=== PATIENT | female | born 1990 | race African-American/Black ===

== ENCOUNTER 2018-02-14 17:30 | Day surgery (SDC) | payer OTHER ==
[2018-02-14 17:51] VITALS: BMI 41.5
[2018-02-14 17:59] VITALS: BP 115/66; TEMP 98.5
--- NOTE | 2018-02-14 18:27 | PDOC.LDHP ---
Labor and Delivery H&P Chief complaint: other (sent over from clinic for a steroid injection) HPI: Patient is a 27YO @ 38.6 weeks consistent with a 28 week sono who was sent over to the hospital for a routine betamethasone injection in anticipation of a scheduled induction on 02/17/18 due to IUGR and uncertain dating. Patient endorses movement and denies any loss of vaginal fluid or vaginal discharge, itching or burning. She endorsed a small amount of vaginal bleeding after having her first cervical check done in clinic this afternoon. She denies any abdominal pain but does endorse some back pain with her contractions. Denies any denies chest pain, SOB, headcahes, vision changes, or LE edema. Current gestational age (weeks): 38 (38.6 based on a 28 week sono) Due date: 03/04/18 (KATELYNN induction for 02/17/18) Dating criteria: second trimester ultrasound Grav: 1 Para: 0 OB History Details: late to care, anemia in , IUGR Current complications: IUGR Abnormal US findings: Yes (IUGR) Past Medical History: none Current medications: pre-saleem vitamins, iron Previous surgical history: none Social history: tobacco use (former tobacco use, none since she was aware she was ) - Physical Exam General: NAD, resting, breathing through contractions Heart: RRR Lungs: nonlabored breathing Abdomen: NTTP Extremeties: no edema FHT: category 1, variability present [place] contractions every: 10 minutes - Vaginal Exam cm dilated: 1 (1.5cm per cervical check performed in clinic today) Effacement: 50% Station: -2 - OB Labs Blood type: O RH: positive Antibody Screen: negative HIV: negative RPR: negative HEPSAg: negative 1 hour GCT: negative (BG level of 89) GBS: negative Urine drug screen: negative Rubella: immune Additional Labs: A1c- 5.0 GC/Chlamydia - negative - Assessment in latent labor presenting for a steroid injection due to IUGR and uncertain dating on ultrasound. - Plan -: sIUP with IUGR: - Aware, fetus has been measuring small for gestational age on U/S @ ~13th percentile. - Will get a repeat U/S at [facility] tomorrow to reassess growth. - FHTs reassuring with baseline in 120s and accels and variability present. - Cervical check in clinic today was 1.5/50/-2. Patient was wang about ~ 10 minutes via continuous monitoring but was resting comfortably and able to breath through them. - Will give first betamethasone injection today due to fetus being IUGR and initial U/S possibly up to 3 weeks off. - Will get a second injection in 24 hours in anticipation of a scheduled induction on 02/17/18. - Patient was monitored after injection for any adverse reaction and tolerated the injection well. Was sent home with labor precautions and instructions regarding when to return to the hospital including severe vaginal bleeding, painful contractions that are 5 minutes or less apart that she in unable to breath through, losing a large amount of vaginal fluid, or not feeling the baby move at least 10x in 2 hours. <Trinh Cardenas - Last Filed: 02/14/18 19:57> <Jarrod Allan - Last Filed: 02/14/18 21:53> Allergies/Adverse Reactions: Allergies Allergy/AdvReac Type Severity Reaction Status Date / Time No Known Allergies Allergy Unverified 02/14/18 17:50 Attending Addendum - Attending Addendum Date/Time: 02/14/182151 I personally discussed the patient with Dr. Morales and Ronald. Patient with suboptimal dates, and has consistently been FGR by EFW, but reported progression and reassuring dopplers. Had received BTMZ at the time of call. OBT warnings discussed, follow up for induction as scheduled. <Jarrod Allan - Last Filed: 02/14/18 21:53>
[2018-02-14] MEDS ORDERED: Betamet Acet/Betamet Na Ph 30 MG/5 ML VIAL IM SCH (18:30)
== END 2018-02-14 19:30 | disposition home or self-care (01) ==
LOC: L&D/OP 17:30
PROVIDERS: ATTEND Orthopaedic Surgery
DX: O36.5930 Maternal care for other known or suspected poor fetal growth, third trimester, not applicable or unspecified (principal); O47.1 False labor at or after 37 completed weeks of gestation; O46.93 Antepartum hemorrhage, unspecified, third trimester; O99.013 Anemia complicating pregnancy, third trimester; D64.9 Anemia, unspecified; Z3A.38 38 weeks gestation of pregnancy; Z87.891 Personal history of nicotine dependence; Z79.899 Other long term (current) drug therapy
CPT/HCPCS: 96372; 99282; J0702

== ENCOUNTER 2018-02-15 16:06 | Inpatient (IN) | payer OTHER ==
[~2018-02-15 16:06] MED LIST: Bupivacaine/Epinephrine 0.25% 30 ML VIAL ONE; Terbutaline Sulfate 1 MG/ML VIAL ONE
[2018-02-15] MEDS ORDERED: Betamet Acet/Betamet Na Ph 30 MG/5 ML VIAL IM SCH (17:30)
--- NOTE | 2018-02-15 18:49 | PDOC.FPROB ---
FMR OB H&P: HPI - History of Present Illness Chief Complaint: Steroid shot History of Present Illness: 27 yo @ 39.0 weeks consistent with a 28 week sono here for 2nd BMZ injection in anticipation of a scheduled induction on 02/17/18 due to IUGR and uncertain dating. Patient endorses movement and denies any loss of vaginal fluid or vaginal discharge, itching or burning. She endorsed a small amount of vaginal bleeding after having her first cervical check done in clinic yesterday, small specks of dark blood. She denies any abdominal pain but does endorse some back pain with her contractions. Denies any denies chest pain, SOB , headaches, vision changes, or new/worsening LE edema. She has some chronic RLE ankle edema after a fracture. Primary Care Physician: Dr. Christine at [facility] FMR OB H&P: Current - Care : 1 Para: 0 Gestational age: 39.0 Due date: 02/22/2018 Dating Criteria: 28.0w sono Course/Complications: late to PNC IUGR (9.2%) on 02/01/2018 - OB Labs Blood type: O RH: positive Antibody Screen: negative HIV: negative RPR: negative HepBsAg: negative Rubella: immune Urine drug screen: negative Gonorrhea: negative Chlamydia: negative 1 hour gtt: 89 A1c: 5.0 GBS: negative - Anatomy Survey Anatomy survey: Dating and anatomy at 28w - Additional Ultrasound Additional: Growth and dopplers 02/01/2018, normal dopplers, Hadlock 9.2% FMR OB H&P: History - Past Medical History PMH: None - OB History OB History: G1 - Surgical History Sx History: None - Social History Social History: Tobacco use (3-4 cigarettes/day) early for last 10 years, denies alcohol or drug use - Family History Family History: Denies h/o DM, HTN, complications FMR OB H&P: Medications - Current Home Medications: Medication Instructions Recorded Confirmed Type Pnv,Calcium 72/Iron/Folic Acid 1 tab PO DAILY 02/14/18 02/16/18 History [PNV Plus Multivitamin] Allergies/Adverse Reactions: Allergies Allergy/AdvReac Type Severity Reaction Status Date / Time No Known Allergies Allergy Verified 02/16/18 00:51 R OB H&P: ROS - Review of Systems General: denies: fever/chills, weight/appetite/sleep changes Eyes: denies: eye pain, vision changes ENT: denies: nasal congestion, rhinorrhea Cardiovascular: denies: chest pain, palpitation Respiratory: denies: cough, congestion Gastrointestinal: denies: abdominal pain, cramping Genitourinary (Female): denies: dysuria, hematuria Musculoskeletal: reports: swelling (R ankle, chronic more so than L ankle). denies: pain, stiffness Neurologic: denies: syncope, weakness Integumentary: denies: itching, rash FMR OB H&P: Vital Signs - Maternal Vital signs: Reviewed and WNL - Heart Tones Baseline: 120 Variability: moderate Acceleration: present Deceleration: absent Category: category 1 [place] contractions every: None FMR OB H&P: Physical Exam - Physical Exam General: NAD, awake, alert and oriented HEENT: normocephalic and atraumatic, EOMI Chest: non-tender to palpation Heart: RRR, normal S1/S2 General: CTAB, no respiratory distress Abdomen: soft, gravid Musculoskeletal: normal gait and station, pulses present Skin: no rash, capillary refill <2 seconds Psychiatric: good judgement and insight, normal mood and affect FMR OB H&P: Results - Imaging Imaging: BPP, dopplers pending FMR OB H&P: A/P - Problem List (1) IUGR (intrauterine growth restriction) Current Visit: Yes Status: Acute (2) Current Visit: Yes Status: Acute (3) Anemia Current Visit: Yes Status: Acute Code(s): D64.9 - ANEMIA, UNSPECIFIED Disposition: 27 yo at 39.0w by 28.0w sono here for BMZ #2 1. Term sIUP with uncertain dating and IUGR - BMZ x2 today - BPP and dopplers pending - Reactive NST - Plan for induction Sunday night - Return precautions and kick count instructions given Discussion: Date/Time: 02/15/181846 This H&P was discussed with Dr. Morales who agrees with the above documentation and plan. Attending Addendum - Attending Addendum Date/Time: 02/16/18 [id number] I personally evaluated the patient and discussed the management with Dr. Ye I agree with the History, Examination, Assessment and Plan documented above with any addition or exceptions noted below. 27 yo G1 at 39w dated by 28w US presenting for BPP/UA dopplers and 2nd BMZ. complicated by growth restriction with plan for induction on Sunday. BMZ given due to concerns that IUGR is due to poor dating and that she will iatrogenically be delivered prematurely. BPP was 88 however UA dopplers were >95th percentile for gestational age. Antegrade flow noted. Decision made to proceed with induction of labor at this time for IUGR at term with elevated UA dopplers. Tracing currently cat I. Cephalic presentation confirmed.
[2018-02-15] MEDS ORDERED: Ondansetron PF 4 MG/2 ML Vial IVP PRN (20:26)
[2018-02-15] MEDS ORDERED: NS / Oxytocin 40 units/1000ml 1,000 ML IV PRN (20:26)
[2018-02-15] MEDS ORDERED: Promethazine HCl 25 MG/ML VIAL IM PRN (20:26)
[2018-02-15] MEDS ORDERED: Lidocaine 1% (PF) 30 ML VIAL SC PRN (20:26)
--- NOTE | 2018-02-15 20:28 | PDOC.EVN ---
Event Note - Event Note Event Note: Discussed elevated S/D ratio with patient and recommendation to proceed with IOL. She agrees and all questions answered at this time. Will start cytotec induction for unfavorable cervix.
[2018-02-15] MEDS ORDERED: Lactated Ringer's 1,000 ML IV SCH (20:30)
[2018-02-15] MEDS ORDERED: NS w/ Oxytocin 10 units 500 ML IV SCH ×2 (20:30)
--- NOTE | 2018-02-15 20:57 | ULT ---
LIMITED OBSTETRICAL ULTRASOUND FOR BIOPHYSICAL PROFILE 02/15/18 INDICATION: History of IUGR. FINDINGS: There is a single live intrauterine gestation in vertex presentation. The placenta is fundal and post erior in location with cardiac activity of 131 beats per minute. The umbilical artery velocity at the placenta measures 88.2 cm/s. The systolic to diastolic ratio is 2.0. At the mid umbilical artery the peak systolic velocity was 150.4 cm/s with a systolic to diastolic ratio of 3.43. The umbilical lucas ry velocity at the fetus measures 145.4 cm/s with a systolic to diastolic ratio of 3.2. The fetus received 2 out of 2 for movement, 2 out of 2 for tone, 2 out of 2 for jere athing and 2 out of 2 for amniotic fluid volume. The PATRICIA was measured at 8.7 cm. IMPRESSION: 1. Biophysical profile is 8 out of 8. 2. The umbilical artery systolic to diastolic ratio is slightly increased, greater than 95th per centile based on gestational age, within the mid umbilical artery with a systolic to diastolic ratio measuring up to 3.43. Antegrade diastolic flow is still seen in all segments of the umbilical artery. 3. PATRICIA of 8.7 cm. POS: BH
--- NOTE | 2018-02-15 20:57 | ULT ---
Please see the separately dictated concurrently performed biophysical profile for details concerning the umbilical artery and its systolic to diastolic ratio. POS: BH
[2018-02-15] MEDS: Lactated Ringer's 1,000 ML IV SCH (21:10)
[2018-02-15 22:24] LABS: Mean Corpuscular HGB CONC 34.7 g/dL (32.0-36.0); Mean Corpuscular Volume 86.6 fL (78.0-98.0); Mean Platelet Volume 7.3 fL (7.4-10.4); Platelet Count 291 thou/uL (130-400); RBC Distribution Width 11.3 % (11.5-14.5); Red Blood Cell (RBC) Count 3.98 mill/uL (4.20-5.40); White Blood Cell (WBC) Count 14.4 thou/uL (4.8-10.8)
[2018-02-15] MEDS: Misoprostol 100 MCG TAB VAG SCH (23:23)
[2018-02-15 23:48] LABS: HBSAg Index 0.17 S/CO (0-0.99); Hep B Surf Ag Non-Reactive S/CO (NonReactive)
[2018-02-16] MEDS ORDERED: Calcium Carbonate 500 MG ChewTAB PO PRN (00:01)
[2018-02-16 00:44] VITALS: BMI 41.5
--- NOTE | 2018-02-16 02:24 | PDOC.LDPN ---
Labor & Delivery Progress Note - Subjective Subjective: comfortable - Objective Vital signs reviewed and normal: yes General: resting Uterine fundus: non tender FHT: category 1 (120-130/mod/+accel/no decel) [place] contractions every: none - Assessment (1) IUGR (intrauterine growth restriction) Current Visit: Yes Status: Acute (2) Current Visit: Yes Status: Acute (3) Anemia Code(s): D64.9 - ANEMIA, UNSPECIFIED Current Visit: Yes Status: Acute Plan: continue plan of care -: 27 yo at 39.1w by 28w sono found to have elevated S/D ratio with IUGR here for IOL 1. Term sIUP with uncertain dating and IUGR, IUGR - s/p BMZ (02/14-) - cytotec #2 at approx 0230 - no contractions at this time - FHTs reassuring Continue cytotec induction
[2018-02-16] MEDS: Misoprostol 100 MCG TAB VAG SCH ×2 (02:38→15:13)
[2018-02-16] MEDS: Lactated Ringer's 1,000 ML IV SCH ×2 (03:58→09:07)
--- NOTE | 2018-02-16 04:41 | PDOC.LDPN ---
Labor & Delivery Progress Note - Subjective Subjective: comfortable - Objective Vital signs reviewed and normal: yes General: resting Uterine fundus: non tender Dilation: 1 Effacement: 50% Station: -2 [place] contractions every: 1-2 minutes Resuscitative measures: maternal oxygen, maternal IV fluids, maternal position change - Assessment (1) IUGR (intrauterine growth restriction) Current Visit: Yes Status: Acute (2) Current Visit: Yes Status: Acute (3) Anemia Code(s): D64.9 - ANEMIA, UNSPECIFIED Current Visit: Yes Status: Acute Plan: resuscitative measures -: 27 yo at 39.1w by 28w sono found to have elevated S/D ratio with IUGR here for IOL 1. Term sIUP with uncertain dating and IUGR - s/p BMZ () - s/p cytotec #2 at approx 0230 - ctx q1-2 minutes Residents called to the bedside for FHT deceleration to the 80s. Maternal position, change, oxygen and fluid bolus performed and FHR increased steadily to 110 and is now 130. Non-painful contractions noted. Will allow rest and consider balloon placement later this morning. If any further decelerations, consider terbulatine. Possibility of C/S discussed with patient. <Yin Ye - Last Filed: 02/16/18 04:51> - Assessment (1) IUGR (intrauterine growth restriction) Current Visit: Yes Status: Acute (2) Current Visit: Yes Status: Acute (3) Anemia Code(s): D64.9 - ANEMIA, UNSPECIFIED Current Visit: Yes Status: Acute <Ceci Morales - Last Filed: 02/16/18 05:17> Attending Addendum - Attending Addendum Date/Time: 02/16/18 0511 I personally evaluated the patient and discussed the management with Dr Ye I agree with the History, Examination, Assessment and Plan documented above with any addition or exceptions noted below. 10 minute decel improved with position change, fluid bolus and oxygen placement. Discussed likely scenario that baby will not tolerate labor since she is having spontaneous decels without contractions. Pt verbalized understanding. Cat II Tracing. Will continue close monitoring <Ceci Morales - Last Filed: 02/16/18 05:17>
--- NOTE | 2018-02-16 04:54 | PDOC.EVN ---
Event Note - Event Note Event Note: Further spontaneous deceleration to FHR of 60 noted for 30 seconds followed by additional to 90 bmp. Ctx noted q1-2 minutes. Terbutaline 0.25mg subq x1 ordered. Will continue to monitor closely.
[2018-02-16] MEDS: Terbutaline Sulfate 1 MG/ML VIAL ONE ×2 (04:57→11:15)
--- NOTE | 2018-02-16 07:52 | PDOC.LDPN ---
Labor & Delivery Progress Note - Subjective Subjective: painful contractions - Objective Vital signs reviewed and normal: yes General: breathing through contractions Uterine fundus: non tender Dilation: 2 Effacement: 90% Station: -2 FHT: category 1 (130/mod/+accel/no decel) [place] contractions every: q2 min - Assessment (1) IUGR (intrauterine growth restriction) Current Visit: Yes Status: Acute (2) Current Visit: Yes Status: Acute (3) Anemia Code(s): D64.9 - ANEMIA, UNSPECIFIED Current Visit: Yes Status: Acute Plan: other (balloon placed) -: 27 yo at 39.1w by 28w sono found to have elevated S/D ratio with IUGR here for IOL 1. Term sIUP with uncertain dating and IUGR - s/p BMZ (02/14-) - s/p cytotec #2 at approx 0230 - ctx q2 minutes - balloon placed successfully Recheck when balloon falls out/12 hours
[2018-02-16] MEDS ORDERED: Fentanyl 4 mcg/Bup 0.1% Cadd 100 ML ONE (08:09)
[2018-02-16] MEDS ORDERED: Eucerin (Mineral Oil/Petrolatum,White) 30 gm Jar TOP PRN ×2 (09:48→12:57)
[2018-02-16] MEDS ORDERED: Naloxone HCl 0.4 mg/ml Vial IVP PRN ×4 (09:48→12:57)
[2018-02-16] MEDS ORDERED: Ondansetron PF 4 MG/2 ML Vial IVP PRN ×3 (09:48→14:49)
[2018-02-16] MEDS ORDERED: ePHEDrine/0.9% NaCl/PF SYRINGE 50 mg/10 ml SLOW IVP PRN (09:48)
[2018-02-16] MEDS ORDERED: Lactated Ringer's 500 ML IV PRN (09:48)
[2018-02-16] MEDS ORDERED: Acetaminophen 325 MG TAB PO PRN (09:48)
[2018-02-16] MEDS ORDERED: diphenhydrAMINE 50 MG/ML VIAL IVP PRN ×2 (09:48→12:57)
[2018-02-16] MEDS ORDERED: Promethazine HCl 25 MG/ML VIAL IM PRN ×3 (09:48→12:57)
[2018-02-16] MEDS ORDERED: Fentanyl 4 mcg/Bupivacaine 0.1% Cassette 100 ML EPIDURAL SCH (10:00)
[2018-02-16] MEDS ORDERED: Communication Order-Pharmacy FS SCH ×2 (10:00→13:00)
[2018-02-16] MEDS ORDERED: CEFAZOLIN 2 GM/50 ML BAG ONE (11:17)
[2018-02-16] MEDS ORDERED: Bicitra 30 ML UDCUP ONE (11:17)
[2018-02-16] MEDS ORDERED: EPINEPHrine 1 MG/ML AMP ONE (11:21)
[2018-02-16] MEDS ORDERED: Succinylcholine Chloride 20 MG/ML 10 ml SYRINGE FS ONE (11:21)
[2018-02-16] MEDS ORDERED: PROPOFOL 0 ML ONE (11:21)
[2018-02-16] MEDS ORDERED: Lidocaine 2% 10 ML INJ ONE ×2 (11:21→11:22)
[2018-02-16] MEDS ORDERED: Fentanyl 100 MCG/2 ML VIAL ONE (11:26)
[2018-02-16] MEDS ORDERED: Ondansetron PF 4 MG/2 ML Vial ONE (11:33)
[2018-02-16] MEDS ORDERED: Oxytocin 10 UNITS/ML VIAL ONE ×2 (11:33→11:34)
[2018-02-16] MEDS ORDERED: Morphine PF 1 MG/ML SYR ONE (11:40)
[2018-02-16 11:43] LABS: Actual Bicarbonate (HCO3a) 28.4 mEq/L (22-28); Base Excess (BEa) -0.2 mEq/L (-2.0 to +3.0)
[2018-02-16] MEDS ORDERED: Promethazine HCl 25 MG SUPP PR PRN (12:57)
[2018-02-16] MEDS ORDERED: PACU-Morphine 4MG/ML VIAL SLOW IVP PRN (12:57)
[2018-02-16] MEDS ORDERED: Naloxone HCl 0.4 mg/ml Vial IV PRN (12:57)
[2018-02-16] MEDS ORDERED: Ondansetron HCl/PF 4 MG/2 ML Vial IVP PRN (12:57)
[2018-02-16] MEDS ORDERED: Promethazine HCl 25 MG/ML VIAL SLOW IVP PRN (12:57)
[2018-02-16] MEDS ORDERED: Ketorolac Tromethamine 30 MG/ML VIAL IVP PRN (12:57)
--- NOTE | 2018-02-16 12:57 | PDOC.OPDEL ---
OB Operative/Delivery Note Delivery Dr/Surgeon: Carmen Rios (attending) Pre-Delivery Diagnosis: medically indicated induction (IUGR) Procedure/Post Delivery Dx: primary low transverse CS Anesthesia: epidural - Findings A Sex: male - 1 min: 8 - 5 min: 9 - Additional Findings/Plan Placenta delivered: spontaneous findings: low transverse hysterotomy without extension Estimated blood loss: unable to determine Compilations/Other Findings: Date of Procedure: 02/16/2018 Resident Surgeon: Gabriel Attending Surgeon: Carmen Procedure: Primary emergent low transverse caesarean section Preoperative Diagnosis: 1)Term intrauterine 2) IUGR of (Hadlock 9%) 3)Elevated S/D ratio 4)Late to care Postoperative Diagnosis: 1)Term intrauterine , delivered via primary LTCS 2) Late to care Anesthesia: epidural Indications: The patient is a 27 year old G1 female at 39.1 weeks gestation who was admitted for IOL 2/2 IUGR of the fetus, who was taken for an emergent c- section 2/2 nonreassuring heart tones. Procedure in Detail: After risks, benefits, and alternatives were explained to the patient, she gave informed consent. Pre-operative antibiotics included Cefazolin 2 gram IV and Azithromicine 500mg IV. The patient was taken to the operating room and patient had already had an epidural placed for anesthesia. She was placed in the supine position with a left tilt and prepped and draped in usual sterile fashion. A Pfannenstiel incision was made with a scalpel and carried down to the level of the fascia which was sharply nicked. The fascial was bluntly dissected. The recti were divided digitally and retracted manually. The peritoneum was entered bluntly and retracted manually. Bladder blade was placed. A low transverse score was made with the scalpel and the uterus was entered in the midline with the scalpel. Clear fluid was seen. The hysterotomy was extended manually. The infant was noted to be vertex and was easily delivered by fundal pressure. Mouth and nares were bulb suctioned. Cord clamped and cut and a section of the cord was sent for a blood gas. A grossly normal male infant was handed to waiting nurse. Cord blood was obtained. Placenta was spontaneously extracted, found to be intact with 3 vessel cord and discarded. The uterus was externalized and the endometrium was curetted with a dry lap. The bladder blade was replaced and the uterus was closed with a running locking #1 Monocryl suture followed by a running non-locking #1 Monocryl horizontal imbricating suture. Following this hemostasis was noted. The abdomen was irrigated with saline and suctioned free of clots. The uterus was internalized and the hysterotomy was again noted to be hemostatic. The muscle was closed with a horizontal mattress stitch using a 0-Vicryl suture. The fascia was closed with a running non-locking 0-Vicryl suture. The subcutaneous tissue was irrigated and there was one persistent bleeder requiring two figure of eight stitches using a Vicryl suture. The skin was approximated with a 3-0 Monocryl cailin suture. All counts were correct. The patient tolerated the procedure well and was taken to the recovery room in stable condition. Estimated Blood Loss: 750 ml Complications: None Specimens: Cord blood sent to lab for blood type Findings: Grossly normal male infant with Apgars of 8 and 9. Grossly normal placenta with 3 vessel cord discarded. Drains: Godinez to gravity draining clear urine Post delivery plan: recovery in LICU
--- NOTE | 2018-02-16 14:02 | PDOC.EVN ---
Event Note - Event Note Event Note: Pt evaluated and cook catheter found to be in vaginal vault. It was removed and pt was 5/90/-1 station. Cat I tracing at that time. Approximately 1 hr later pt had 2 deep variable decels to 60s and FHTs were difficult to trace. Decision was made to AROM and place Internal monitors. She was AROMed for a moderate amount of clear fluid. IUPC also placed. FHT noted to be in 70s x 3 minutes despite maternal oxygen, fluid bolus, repositioning and d/ c oxytocin. A dose of terbutaline was also given with persistent bradycardia. Decision was made to proceed with stat section for non reassuring status. Prior to leaving room FHTs back in 120s and in OR FHTs were 130s.
[2018-02-16] MEDS ORDERED: NS / Oxytocin 40 units/1000ml 1,000 ML IV SCH (14:49)
[2018-02-16] MEDS ORDERED: HYDROcodone/Acetaminophen 5/325 mg Tablet PO PRN (14:49)
[2018-02-16] MEDS ORDERED: Lanolin Ointment 7 GM TUBE TOP PRN (14:49)
[2018-02-16] MEDS ORDERED: Bisacodyl 10 MG SUPP PR PRN (14:49)
[2018-02-16] MEDS ORDERED: Zolpidem Tartrate 5 MG TAB PO PRN (14:49)
[2018-02-16] MEDS ORDERED: Adacel (T-DAP) 0.5 ML SYRINGE IM ONE (14:49)
--- NOTE | 2018-02-16 16:44 | PDOC.PP ---
Post Progress Note Post Day #: 0 Subjective: 27 yo [id number] s/p urgent primary LTCS 2/2 NRFHTs. Mom doing well and baby as well. Mom inquired about and was able to obtain latch in room while I was in there. PO intake tolerated: yes Flatus: no Ambulation: no Vital Signs (12 hours) Temp Pulse Resp BP Pulse Ox 02/16/18 15:50 48 L 16 124/60 02/16/18 14:50 96.4 F L 51 L 16 116/53 L 97 Weight Weight 102.965 kg - Physical Examination General: NAD Respiratory: non-labored breathing Skin: CS incision dry & intact Psychiatric: A&Ox3, normal affect Result Diagrams: 02/15/18 22:05 Additional Labs: Post Labs Blood Type O POSITIVE 02/15/18 22:05 Hep Bs Antigen Non-Reactive S/CO (NonReactive) 02/15/18 22:05 (1) Term Code(s): Z34.80 - ENCOUNTER FOR SUPRVSN OF NORMAL , UNSP TRIMESTER Status: Acute (2) delivery delivered Code(s): O82 - ENCOUNTER FOR DELIVERY WITHOUT INDICATION Status: Acute - Assessment/Plan A/P: 27yo [id number] @39.1wks delivered via primary LTCS. -Continue norco and ibuprofen for pain control -baby registry sales consultant consulted -Encourage ambulation, advance diet as tolerate, dc frances -Continue to monitor I/O's and incision. -AM Hemagram
[2018-02-16] MEDS: Docusate Calcium (SURFAK) 240 MG CAP PO SCH (22:40)
[2018-02-16] MEDS: Ibuprofen 800 MG TAB PO SCH (22:42)
[2018-02-17] MEDS: diphenhydrAMINE 25 MG CAP PO PRN ×4 (00:56→16:16)
[2018-02-17] MEDS: Ibuprofen 800 MG TAB PO SCH ×3 (05:42→22:17)
--- NOTE | 2018-02-17 06:24 | PDOC.PP ---
Post Progress Note Post Day #: 1 Subjective: Pt doing well this morning. Denies pain. Frances pulled. Tolerating normal diet, ambulating, passing flatus. PO intake tolerated: yes Flatus: yes Ambulation: yes Vital Signs (12 hours) Temp Pulse Resp BP Pulse Ox 02/17/18 00:40 98.2 F 51 L 16 117/56 L 02/16/18 20:40 99 F 56 L 16 96 02/16/18 20:17 116/55 L Weight Weight 102.965 kg - Physical Examination General: NAD Cardiovascular: no m/r/g, RRR Respiratory: clear to auscultation bilaterally, non-labored breathing Abdominal: + bowel sounds, appropriately TTP Deviation from normal: uterus 1 cm below umbilicus Skin: CS incision dry & intact Neurological: no gross focal deficits Psychiatric: A&Ox3 Result Diagrams: 02/15/18 22:05 Additional Labs: Post Labs Blood Type O POSITIVE 02/15/18 22:05 Hep Bs Antigen Non-Reactive S/CO (NonReactive) 02/15/18 22:05 (1) Term Code(s): Z34.80 - ENCOUNTER FOR SUPRVSN OF NORMAL , UNSP TRIMESTER Status: Acute (2) delivery delivered Code(s): O82 - ENCOUNTER FOR DELIVERY WITHOUT INDICATION Status: Acute - Assessment/Plan A/P: 27yo [id number] @39.1wks delivered via primary LTCS. -Continue norco and ibuprofen for pain control -Encourage ambulation, advance diet as tolerated, zofran for nausea -Continue to monitor I/O's -Hemagram pending <Dana Rios - Last Filed: 02/17/18 06:48> Vital Signs (12 hours) Temp Pulse Resp BP Pulse Ox 02/17/18 08:46 98.3 F 55 L 18 110/55 L 99 02/17/18 05:35 97.1 F L 51 L 16 130/57 L 02/17/18 00:40 98.2 F 51 L 16 117/56 L Weight Weight 102.965 kg Result Diagrams: 02/17/18 06:45 Additional Labs: Post Labs Blood Type O POSITIVE 02/15/18 22:05 Hep Bs Antigen Non-Reactive S/CO (NonReactive) 02/15/18 22:05 (1) IUGR (intrauterine growth restriction) Status: Acute (2) Status: Acute (3) Anemia Code(s): D64.9 - ANEMIA, UNSPECIFIED Status: Acute <Ceci Morales - Last Filed: 02/17/18 11:12> Attending Addendum - Attending Addendum Date/Time: 02/17/18 1109 I personally evaluated the patient and discussed the management with Dr. Weeks I agree with the History, Examination, Assessment and Plan documented above with any addition or exceptions noted below. POD #1 s/p PLTCS. Pt doing well this morning. Pain is controlled. +Flatus Has not had spontaneous urination s/p removal of frances. Tolerating PO. Denies dizziness. meeting appropriate milestones. Encourage ambulation. anticipate d./c to home on POD # 3 <Ceci Morales - Last Filed: 02/17/18 11:12>
[2018-02-17 07:07] LABS: Mean Corpuscular HGB CONC 33.9 g/dL (32.0-36.0); Mean Corpuscular Hemoglobin 29.8 pg (27.0-31.0); Mean Corpuscular Volume 87.8 fL (78.0-98.0); Mean Platelet Volume 7.4 fL (7.4-10.4); Platelet Count 275 thou/uL (130-400); RBC Distribution Width 11.4 % (11.5-14.5); White Blood Cell (WBC) Count 15.1 thou/uL (4.8-10.8)
[2018-02-17] MEDS: Prenatal Vitamin 1 TAB PO SCH (08:12)
[2018-02-17] MEDS: HYDROcodone/Acetaminophen 5/325 mg Tablet PO PRN ×2 (08:12→19:58)
[2018-02-17] MEDS: Docusate Calcium (SURFAK) 240 MG CAP PO SCH ×2 (08:13→22:16)
[2018-02-17] MEDS: Simethicone Chewable 80 MG TAB PO PRN (19:58)
[2018-02-18] MEDS: HYDROcodone/Acetaminophen 5/325 mg Tablet PO PRN ×6 (00:37→23:03)
[2018-02-18] MEDS: Calcium Carbonate 500 MG ChewTAB PO PRN ×2 (04:30→23:02)
[2018-02-18] MEDS: Ibuprofen 800 MG TAB PO SCH ×3 (05:11→23:02)
--- NOTE | 2018-02-18 05:39 | PDOC.PP ---
Post Progress Note Post Day #: 2 Subjective: Having abdominal pain (diffuse and over incision) 7/10 improved from 10/10 with norco and ibuprofen. Eating and drinking well, voiding and passing flatus. Ambulating, but having pain. Minimal lochia. Otherwise feeling well, denies headache. PO intake tolerated: yes Flatus: yes Ambulation: yes Vital Signs (12 hours) Temp Pulse Resp BP 02/18/18 04:30 97.6 F 62 16 102/50 L 02/18/18 00:25 98.4 F 72 16 112/54 L 02/17/18 20:00 97.9 F 66 16 114/54 L Weight Weight 102.965 kg - Physical Examination General: NAD Cardiovascular: no m/r/g, RRR Respiratory: clear to auscultation bilaterally, non-labored breathing Abdominal: + bowel sounds, no distention Deviation from normal: moderately tender to palpation, no guarding or rebound Fundus firm & at: below umbilicus Skin: CS incision dry & intact, no rash Neurological: no gross focal deficits Psychiatric: A&Ox3, normal affect Result Diagrams: 02/17/18 06:45 Additional Labs: Post Labs Blood Type O POSITIVE 02/15/18 22:05 Hep Bs Antigen Non-Reactive S/CO (NonReactive) 02/15/18 22:05 (1) delivery delivered Code(s): O82 - ENCOUNTER FOR DELIVERY WITHOUT INDICATION Status: Acute (2) IUGR (intrauterine growth restriction) Status: Acute (3) Status: Acute (4) Term Code(s): Z34.80 - ENCOUNTER FOR SUPRVSN OF NORMAL , UNSP TRIMESTER Status: Acute (5) care insufficient Code(s): O09.30 - SUPRVSN OF PREG W INSUFFICIENT ANTENAT CARE, UNSP TRIMESTER Status: Acute - Assessment/Plan 27yo [id number] @39.1wks delivered via primary LTCS on 02/16/18, POD #2. -Continue norco and ibuprofen for pain control, continue to monitor -Encourage ambulation -Patient is pumping, able to get colostrum. Continue encouraging breast feeding -Continue to monitor I/O's -Hgb 12 ->11.0, wnl Dispo: Plan discharge on POD #3 <Radha Barton - Last Filed: 02/18/18 08:43> Vital Signs (12 hours) Temp Pulse Resp BP Pulse Ox 02/18/18 08:17 98.4 F 65 20 118/68 97 02/18/18 04:30 97.6 F 62 16 102/50 L 02/18/18 00:25 98.4 F 72 16 112/54 L Weight Weight 102.965 kg Result Diagrams: 02/17/18 06:45 Additional Labs: Post Labs Blood Type O POSITIVE 02/15/18 22:05 Hep Bs Antigen Non-Reactive S/CO (NonReactive) 02/15/18 22:05 (1) IUGR (intrauterine growth restriction) Status: Acute (2) Status: Acute (3) Anemia Code(s): D64.9 - ANEMIA, UNSPECIFIED Status: Acute <Ceci Morales - Last Filed: 02/18/18 11:21> Attending Addendum - Attending Addendum Date/Time: 02/18/18 1119 I personally evaluated the patient and discussed the management with Dr. Barton I agree with the History, Examination, Assessment and Plan documented above with any addition or exceptions noted below. Stable POD #2 s/p PLTCS. Voiding, ambulating and tolerating PO without difficulty. +Flatus. Bleeding minimal. pain controlled. Incision is clean/dry/intact. Meeting appropriate milestones. Encourage ambulation today. Anticipate d/c to home tomorrow <Ceci Morales - Last Filed: 02/18/18 11:21>
[2018-02-18] MEDS: Docusate Calcium (SURFAK) 240 MG CAP PO SCH ×2 (08:45→23:02)
[2018-02-18] MEDS: Prenatal Vitamin 1 TAB PO SCH (08:45)
[2018-02-18] MEDS: Simethicone Chewable 80 MG TAB PO PRN (13:16)
[2018-02-19] MEDS: HYDROcodone/Acetaminophen 5/325 mg Tablet PO PRN ×3 (04:24→13:07)
[2018-02-19] MEDS: Ibuprofen 800 MG TAB PO SCH ×2 (05:51→14:02)
--- NOTE | 2018-02-19 06:27 | PDOC.PP ---
Post Progress Note Post Day #: 3 Subjective: Patient is still having abdominal pain, but ambulated more yesterday. Eating, drinking, voiding and passing flatus. She has never been on control and is not sure what she would like to start on currently. She does still complain of hard painless nodule on superior aspect of right breast, discussed continuing to massage with feeds and while pumping. Breast feeding is going well. PO intake tolerated: yes Flatus: yes Ambulation: yes Vital Signs (12 hours) Temp Pulse Resp BP Pulse Ox 02/18/18 20:00 98.2 F 88 20 121/60 98 Weight Weight 102.965 kg - Physical Examination General: NAD Cardiovascular: no m/r/g, RRR Respiratory: clear to auscultation bilaterally, non-labored breathing Abdominal: + bowel sounds Deviation from normal: moderately and diffusely tender to palpation, no guarding or rebound Fundus firm & at: below umbilicus Deviation from normal: no peripheral edema, pulses full and equal in BLE Skin: CS incision dry & intact, no rash Psychiatric: A&Ox3, normal affect Result Diagrams: 02/17/18 06:45 Additional Labs: Post Labs Blood Type O POSITIVE 02/15/18 22:05 Hep Bs Antigen Non-Reactive S/CO (NonReactive) 02/15/18 22:05 (1) delivery delivered Code(s): O82 - ENCOUNTER FOR DELIVERY WITHOUT INDICATION Status: Acute (2) IUGR (intrauterine growth restriction) Status: Acute (3) Status: Acute (4) Term Code(s): Z34.80 - ENCOUNTER FOR SUPRVSN OF NORMAL , UNSP TRIMESTER Status: Acute (5) care insufficient Code(s): O09.30 - SUPRVSN OF PREG W INSUFFICIENT ANTENAT CARE, UNSP TRIMESTER Status: Acute - Assessment/Plan 27yo [id number] @39.1wks delivered via primary LTCS on 02/16/18, POD #3. -Continue norco and ibuprofen for pain control -Pt ambulating, eating, drinking, voiding, and passing gas -Incision clean, dry and intact -Patient saw yesterday, breast feeding is going well -Hgb 12 ->11.0, wnl -Unsure of what control to start on at this time, encouraged patient to follow up with PCP and discuss -Encouraged pelvic rest 6 weeks -Patient to follow up with PCP in 2 weeks Plugged milk duct -Encouraged continued massage of right breast, most likely clogged duct -Discussed if area becomes warm or tender to see her physician right away Dispo: Discharge to home today <Radha Barton - Last Filed: 02/19/18 09:07> Vital Signs (12 hours) Temp Pulse Resp BP Pulse Ox 02/19/18 08:25 98 02/19/18 07:56 98.3 F 73 20 118/59 L 98 Weight Weight 102.965 kg Result Diagrams: 02/17/18 06:45 Additional Labs: Post Labs Blood Type O POSITIVE 02/15/18 22:05 Hep Bs Antigen Non-Reactive S/CO (NonReactive) 02/15/18 22:05 (1) IUGR (intrauterine growth restriction) Status: Acute (2) Status: Acute (3) Anemia Code(s): D64.9 - ANEMIA, UNSPECIFIED Status: Acute <Ceci Morales - Last Filed: 02/19/18 12:26> Attending Addendum - Attending Addendum Date/Time: 02/19/18 1224 I personally evaluated the patient and discussed the management with Dr. Barton I agree with the History, Examination, Assessment and Plan documented above with any addition or exceptions noted below. Stable POD #3 s/p PLTCS for NRFHT. Normoactive bowel sounds present. Incision is clean/dry/intact. Doing well today. Still having pain but it is improved some. Meeting appropriate milestones. D/C to home today. Followup with PCP in 2 weeks <Ceci Morales - Last Filed: 02/19/18 12:26>
[2018-02-19 07:57] VITALS: BP 118/59; TEMP 98.3
[2018-02-19] MEDS: Docusate Calcium (SURFAK) 240 MG CAP PO SCH (09:17)
[2018-02-19] MEDS: Prenatal Vitamin 1 TAB PO SCH (09:17)
== END 2018-02-19 15:10 | disposition home or self-care (01) | DRG 788 ==
LOC: L&D/OP 16:06 → L&D 19:40 → 3SW 02-16 15:13
PROVIDERS: ADMIT Family Medicine; ATTEND Family Medicine
PROC: 3E033VJ Introduction of Other Hormone into Peripheral Vein, Percutaneous Approach (ICD-10-PCS; 2018-02-15)
PROC: 10D00Z1 Extraction of Products of Conception, Low, Open Approach (ICD-10-PCS; principal; 2018-02-16)
PROC: 0U7C7ZZ Dilation of Cervix, Via Natural or Artificial Opening (ICD-10-PCS; 2018-02-16)
PROC: 10907ZC Drainage of Amniotic Fluid, Therapeutic from Products of Conception, Via Natural or Artificial Opening (ICD-10-PCS; 2018-02-16)
DX: O36.5930 Maternal care for other known or suspected poor fetal growth, third trimester, not applicable or unspecified (principal); O99.02 Anemia complicating childbirth; O76 Abnormality in fetal heart rate and rhythm complicating labor and delivery; O99.334 Smoking (tobacco) complicating childbirth; D64.9 Anemia, unspecified; F17.210 Nicotine dependence, cigarettes, uncomplicated; Z3A.39 39 weeks gestation of pregnancy; Z37.0 Single live birth
CPT/HCPCS: 36415; 51702; 76819; 82805; 85027; 86850; 86900; 86901; 87340; 88307; 93976; 96372; 99282; 99285; J0171; J0702; J1885; J2274; J2405; J2590; J2704; J3010; J3105